=== PATIENT | male | born 1985 | race African-American/Black ===

== ENCOUNTER 2021-01-17 17:10 | Emergency (ER) | payer MEDICAID ==
[~2021-01-17] VITALS: Ht 175.3 cm; Wt 79.0 kg
[2021-01-17 17:19] VITALS: BP 113/58
== END 2021-01-17 19:06 | disposition home or self-care (01) ==
LOC: EMS 17:10
DX: N47.1 Phimosis (principal); M54.5 Low back pain; G89.29 Other chronic pain; Z20.822 Contact with and (suspected) exposure to COVID-19
CPT/HCPCS: 99283; U0003

== ENCOUNTER 2022-03-02 14:16 | Emergency (ER) | payer MEDICAID ==
[~2022-03-02] VITALS: Ht 157.5 cm; Wt 76.4 kg
[2022-03-02] MEDS ORDERED: HYDROCODONE/ACETAMINOPHEN 5-325 MG TABLET PO ONE (16:15)
[2022-03-02] MEDS ORDERED: HYDR-4723 PO (16:33)
[2022-03-02 16:40] VITALS: BP 139/80
== END 2022-03-02 17:01 | disposition home or self-care (01) ==
LOC: EMS 14:29
DX: G89.18 Other acute postprocedural pain (principal); N48.89 Other specified disorders of penis; Z48.816 Encounter for surgical aftercare following surgery on the genitourinary system
CPT/HCPCS: 99283

== ENCOUNTER 2022-03-09 17:00 | Emergency (ER) | payer MEDICAID ==
[~2022-03-09] VITALS: Ht 167.6 cm; Wt 80.0 kg
[~2022-03-09 17:00] MED LIST: HYDR-4723 PO
[2022-03-09 19:20] VITALS: BP 135/71
[2022-03-09] MEDS ORDERED: SULF-261 PO (19:36)
[2022-03-09] MEDS ORDERED: SULFAMETHOX/TRIMETH DS 800-160 MG/TABLET PO ONE (19:45)
== END 2022-03-09 20:05 | disposition home or self-care (01) ==
LOC: EMS 17:01
DX: N48.89 Other specified disorders of penis (principal); N48.29 Other inflammatory disorders of penis
CPT/HCPCS: 99283

== ENCOUNTER 2022-03-22 08:29 | Emergency (ER) | payer MEDICAID ==
[~2022-03-22] VITALS: Ht 165.1 cm; Wt 80.0 kg
[~2022-03-22 08:29] MED LIST changes: +SULF-261 PO
[2022-03-22 08:47] VITALS: BP 128/74
[2022-03-22] MEDS ORDERED: MOXI3DRO27 OU (08:53)
== END 2022-03-22 09:18 | disposition home or self-care (01) ==
LOC: EMS 08:52
DX: H10.13 Acute atopic conjunctivitis, bilateral (principal)
CPT/HCPCS: 99283

== ENCOUNTER 2022-09-28 16:58 | Emergency (ER) | payer MEDICAID ==
[~2022-09-28] VITALS: Ht 162.6 cm; Wt 80.0 kg
[~2022-09-28 16:58] MED LIST changes: -HYDR-4723 PO; +MOXI3DRO27 OU; -SULF-261 PO
[2022-09-28 17:08] VITALS: BP 125/66
[2022-09-29] MEDS ORDERED: OLOP2.5D12 OU (17:26)
== END 2022-09-28 22:11 | disposition left against medical advice (07) ==
LOC: EMS 17:01
DX: M54.50 Low back pain, unspecified (principal); Z53.21 Procedure and treatment not carried out due to patient leaving prior to being seen by health care provider
CPT/HCPCS: 99281; Z7502

== ENCOUNTER 2022-09-29 15:18 | Emergency (ER) | payer MEDICAID ==
[~2022-09-29] VITALS: Ht 162.6 cm; Wt 94.0 kg
[2022-09-29 17:23] VITALS: BP 117/69
[2022-09-29] MEDS ORDERED: OLOP2.5D12 OU (17:26)
== END 2022-09-29 17:48 | disposition home or self-care (01) ==
LOC: EMS 15:21
DX: H10.13 Acute atopic conjunctivitis, bilateral (principal); Z98.890 Other specified postprocedural states
CPT/HCPCS: 99283; Z7502